=== PATIENT | male | born 1950 | race Caucasian/White ===

== ENCOUNTER 2017-12-28 00:39 | Observation (INO) | payer MEDICARE, OTHER ==
[2017-12-28] MEDS ORDERED: SODIUM CHLORIDE 0.9% 1,000 ML IV STA ×2 (01:19)
[2017-12-28] MEDS ORDERED: cefTRIAXone IN SWFI 1,000 MG/10 ML SYRINGE IVP STA (01:19)
[2017-12-28] MEDS ORDERED: SODIUM CHLORIDE 0.9% 500 ML IV STA (01:19)
[2017-12-28] MEDS ORDERED: IPRATROPIUM-ALBUTEROL 3 ML NEB INHALATION STA (01:19)
--- NOTE | 2017-12-28 01:24 | ED ---
General Adult HPI - General Chief complaint: Upper Respiratory Infection Stated complaint: foot pain Time Seen by Provider: 12/28/17 00:45 Source: patient, RN notes reviewed, old records reviewed Mode of arrival: ambulatory Limitations: no limitations - History of Present Illness Initial comments: This is a 67-year-old male the ER for evaluation of multiple complaints. Patient complaining of occasional chest pain with cough and congestion significant shortness of breath. Bilateral lower Shorty pains and diffuse body rash that is severely pruritic. Patient admits to occasional fevers. Patient recently traveled here from [facility]. No takes no medications. Patient states he does not feel well, his breathing is worsening over the past week - Related Data Home Medications Medication Instructions Recorded Confirmed No Known Home Medications [No 12/28/17 12/28/17 Known Home Medications] Allergies Allergy/AdvReac Type Severity Reaction Status Date / Time amoxicillin [From Augmentin] Allergy Rash/Hives Verified 12/28/17 00:43 clavulanic acid Allergy Rash/Hives Verified 12/28/17 00:43 [From Augmentin] Review of Systems ROS Statement: Those systems with pertinent positive or pertinent negative responses have been documented in the HPI. ROS Other: All systems not noted in ROS Statement are negative. Past Medical History Past Medical History: No Reported History History of Any Multi-Drug Resistant Organisms: None Reported Past Surgical History: Hernia Repair Past Psychological History: No Psychological Hx Reported Smoking Status: Current every day smoker Past Alcohol Use History: Occasional Past Drug Use History: None Reported General Exam - General Exam Comments Initial Comments: excoriations, Limitations: no limitations General appearance: alert, in no apparent distress Head exam: Present: atraumatic, normocephalic, normal inspection Eye exam: Present: normal appearance, PERRL, EOMI. Absent: scleral icterus, conjunctival injection, periorbital swelling ENT exam: Present: normal exam, mucous membranes moist Neck exam: Present: normal inspection. Absent: tenderness, meningismus, lymphadenopathy Respiratory exam: Present: normal lung sounds bilaterally, wheezes, decreased breath sounds, prolonged expiratory. Absent: respiratory distress, rales, rhonchi, stridor Cardiovascular Exam: Present: normal rhythm, tachycardia, normal heart sounds. Absent: systolic murmur, diastolic murmur, rubs, gallop, clicks GI/Abdominal exam: Present: soft, normal bowel sounds. Absent: distended, tenderness, guarding, rebound, rigid Extremities exam: Present: normal inspection, full ROM, normal capillary refill. Absent: tenderness, pedal edema, joint swelling, calf tenderness Back exam: Present: normal inspection Neurological exam: Present: alert, oriented X3, CN II-XII intact Psychiatric exam: Present: normal affect, normal mood Skin exam: Present: warm, dry, intact, normal color, other (Scabies like infestation throughout skin, multiple areas of secondary infection). Absent: rash Course Vital Signs 12/28/17 12/28/17 12/28/17 00:40 02:14 02:24 Temperature 97 F L Pulse Rate 120 H 108 H 69 Respiratory 20 18 18 Rate Blood Pressure 165/84 146/66 O2 Sat by Pulse 97 97 Oximetry 12/28/17 02:25 Temperature Pulse Rate 103 H Respiratory 18 Rate Blood Pressure O2 Sat by Pulse Oximetry - Reevaluation(s) Reevaluation #1: 12/28/17 02:40 Patient has no significant clinical improvement breathing Reevaluation #2: 12/28/17 02:41 Pain in bilateral feet is improved EKG Findings - EKG Comments: EKG Findings:: EKG shows sinus tachycardia rate 107, VA 146, QRS 100, QTc 464 Medical Decision Making - Medical Decision Making 67 male for ER for evaluation of COPD cough congestion, no improvement. Bilateral lower extremity cellulitis and erythema, pain. Occasional fevers. Patient also has diffuse rash over body that is severely pruritic secondary infection. - Lab Data Result diagrams: 12/28/17 01:35 12/28/17 01:35 Lab Results 12/28/17 12/28/17 12/28/17 Range/Units 01:35 01:35 01:35 WBC 12.2 H (3.8-10.6) k/uL RBC 4.60 (4.30-5.90) m/uL Hgb 12.2 L (13.0-17.5) gm/dL Hct 37.9 L (39.0-53.0) % MCV 82.5 (80.0-100.0) fL MCH 26.4 (25.0-35.0) pg MCHC 32.0 (31.0-37.0) g/dL RDW 14.5 (11.5-15.5) % Plt Count 400 (150-450) k/uL Neutrophils % 79 % Lymphocytes % 10 % Monocytes % 5 % Eosinophils % 5 % Basophils % 0 % Neutrophils # 9.6 H (1.3-7.7) k/uL Lymphocytes # 1.2 (1.0-4.8) k/uL Monocytes # 0.6 (0-1.0) k/uL Eosinophils # 0.6 (0-0.7) k/uL Basophils # 0.1 (0-0.2) k/uL PT 9.8 (9.0-12.0) sec INR 1.0 (<1.2) APTT 24.5 (22.0-30.0) sec D-Dimer 1.25 H (<0.60) mg/L FEU Sodium 148 H (137-145) mmol/L Potassium 4.0 (3.5-5.1) mmol/L Chloride 110 H (98-107) mmol/L Carbon Dioxide 24 (22-30) mmol/L Anion Gap 14 mmol/L BUN 29 H (9-20) mg/dL Creatinine 0.90 (0.66-1.25) mg/dL Est GFR (CKD-EPI)AfAm >90 (>60 ml/min/1.73 sqM) Est GFR (CKD-EPI)NonAf 88 (>60 ml/min/1.73 sqM) Glucose 143 H (74-99) mg/dL Calcium 10.1 (8.4-10.2) mg/dL Magnesium 1.8 (1.6-2.3) mg/dL Total Bilirubin 0.3 (0.2-1.3) mg/dL AST 43 (17-59) U/L ALT 39 (21-72) U/L Alkaline Phosphatase 92 (38-126) U/L Total Protein 7.5 (6.3-8.2) g/dL Albumin 4.1 (3.5-5.0) g/dL Serum Alcohol <10 mg/dL Disposition Clinical Impression: Asthmatic bronchitis, Scabies, Cellulitis of both feet, Pernio, COPD (chronic obstructive pulmonary disease) Disposition: ADMITTED IP TO THIS [facility] Condition: Good Referrals: Nonstaff,Physician [Primary Care Provider] - 1-2 days
--- NOTE | 2017-12-28 02:05 | XR ---
EXAMINATION TYPE: XR chest 2V DATE OF EXAM: 12/28/2017 COMPARISON: NONE HISTORY: Short of breath TECHNIQUE: Frontal and lateral views of the chest are obtained. FINDINGS: There is no heart failure nor confluent pneumonic infiltrate. Costophrenic angles are quinn r. Bony thorax is intact. IMPRESSION: No active cardiopulmonary disease. Normal heart.
[2017-12-28 02:13] LABS: Basophils # (A) 0.1 k/uL (0-0.2); Basophils % (A) 0 %; Eosinophils # (A) 0.6 k/uL (0-0.7); Eosinophils % (A) 5 %; HCT 37.9 % (39.0-53.0); HGB 12.2 gm/dL (13.0-17.5); Lymphocytes # (A) 1.2 k/uL (1.0-4.8); Lymphocytes % (A) 10 %; MCH 26.4 pg (25.0-35.0); MCV 82.5 fL (80.0-100.0); Mean Platelet Volume 7.2; Monocytes # (A) 0.6 k/uL (0-1.0); Monocytes % (A) 5 %; Neutrophils # (A) 9.6 k/uL (1.3-7.7); Neutrophils % (A) 79 %; Platelet Count 400 k/uL (150-450); RDW 14.5 % (11.5-15.5); WBC 12.2 k/uL (3.8-10.6)
[2017-12-28 02:15] LABS: ALT 39 U/L (21-72); AST 43 U/L (17-59); Albumin 4.1 g/dL (3.5-5.0); Alcohol <10 mg/dL; Alkaline Phosphatase 92 U/L (38-126); Anion Gap 14 mmol/L; Blood Urea Nitrogen 29 mg/dL (9-20); Calcium 10.1 mg/dL (8.4-10.2); Carbon Dioxide 24 mmol/L (22-30); Chloride 110 mmol/L (98-107); Glucose 143 mg/dL (74-99); Magnesium 1.8 mg/dL (1.6-2.3); Sodium 148 mmol/L (137-145); Total Bilirubin 0.3 mg/dL (0.2-1.3); Total Protein 7.5 g/dL (6.3-8.2)
[2017-12-28 02:22] LABS: D-Dimer 1.25 mg/L FEU (<0.60); Partial Thromboplastin Time 24.5 sec (22.0-30.0); Prothrombin Time 9.8 sec (9.0-12.0)
[2017-12-28] MEDS ORDERED: diphenhydrAMINE 50 MG/ML 1 ML VIAL IVP PRN (02:37)
[2017-12-28] MEDS ORDERED: THIAMINE 100 MG/ML 2 ML VIAL IVPB STA (02:37)
[2017-12-28] MEDS ORDERED: PERMETHRIN 5% CREAM 60 GM TUBE TOPICAL ONE (02:37)
[2017-12-28] MEDS ORDERED: VANCOMYCIN IV PER PHARMACY 1 EACH MISC MISCELLANE PRN (02:37)
[2017-12-28] MEDS ORDERED: LORazepam 2 MG/ML INJ IV PRN ×3 (02:37)
[2017-12-28] MEDS ORDERED: methylPREDNISolone SOD SUCCI 125 MG/2 ML VIAL IV STA (02:38)
[2017-12-28] MEDS ORDERED: IPRATROPIUM-ALBUTEROL 3 ML NEB INHALATION PRN (02:38)
[2017-12-28] MEDS ORDERED: VANCOMYCIN 1,500 MG in SODIUM CHLORIDE 0.9% 250 ML IVPB STA (02:44)
[2017-12-28 02:51] LABS: Creatine Kinase 261 U/L (55-170)
[2017-12-28] MEDS ORDERED: RX INFO: IV CONTRAST WAS GIVEN 1 EACH MISC MISCELLANE PRN (02:55)
[2017-12-28 03:04] LABS: Troponin I <0.012 ng/mL (0.000-0.034)
[2017-12-28 03:05] LABS: Creatine Kinase MB 7.5 ng/mL (0.0-2.4)
--- NOTE | 2017-12-28 05:00 | CT ---
EXAM: CT Angiography Chest With Intravenous Contrast CLINICAL HISTORY: ITS.REASON CT Reason: Pain TECHNIQUE: Axial computed tomographic angiography images of the chest with intravenous contrast using pulmonary embolism protocol. CTDI is 6.10 mGy and DLP is 272.60 mGy-cm. This CT exam was performed using one or more of the following dose reduction techniques: automated exposure control, adjustment of the mA and/or kV according to patient size, and/or use of iterative reconstruction technique. MIP reconstructed images were created and reviewed. COMPARISON: No relevant prior studies available. FINDINGS: Pulmonary arteries: Unremarkable. No pulmonary embolism. Aorta: No acute findings. No thoracic aortic aneurysm. Lungs: No consolidation. No airway abnormalities. Pleural space: No perfusion and no pneumothorax. No significant effusion. Heart: Multivessel coronary calcifications. No cardiomegaly or pericardial effusion. No evidence of RV dysfunction. Bones/joints: No suspicious lytic or sclerotic lesions of bone. No acute fracture. No dislocation. Soft tissues: Unremarkable. Lymph nodes: Calcified left hilar and subcarinal lymph nodes are compatible with old granulomatous disease. Spleen: Calcified granulomas of the spleen. Other findings: Upper abdomen is unremarkable. IMPRESSION: No acute cardiopulmonary disease.
[2017-12-28 06:46] VITALS: BMI 23.1
--- NOTE | 2017-12-28 08:16 | US ---
EXAMINATION TYPE: US venous doppler duplex LE DATE OF EXAM: 12/28/2017 7:50 AM COMPARISON: NONE CLINICAL HISTORY: Pain. ANN MARIE, bilat leg swelling and redness, h/o scabies and bed bugs SIDE PERFORMED: Bilateral TECHNIQUE: The lower extremity deep venous system is examined utilizing real time linear array sonog eduardo with graded compression, doppler sonography and color-flow sonography. VESSELS IMAGED: External Iliac Vein (EIV) Common Femoral Vein Deep Femoral Vein Greater Saphenous Vein * Femoral Vein Popliteal Vein Small Saphenous Vein * Proximal Calf Veins (* superficial vessels) Right Leg: Appears negative for DVT Left Leg: Appears negative for DVT IMPRESSION: 1. Bilateral lower extremity negative for deep venous thrombosis.
[2017-12-28 08:20] VITALS: BP 158/92; PULSE 96; RESP 16; TEMP 97.8
--- NOTE | 2017-12-28 11:49 | P.HPIM ---
History of Present Illness 70-year-old gentleman came in to ER, apparently homeless and the came in with pruritic rash which is believe is secondary to dry skin Herndon lotion for that but patient was diagnosed with scabies my suspicion is extremely low for scabies patient was treated with permethrin for scabies and was admitted to the hospital because of the left lower limb cellulitis Doppler of the left lower expertise negative patient has mild does have cellulitis with local is of temperature edema and some tenderness. Patient will be discharged on Keflex for that patient was comparing of passive congestion. Patient will be evaluated by social work if we're able to figure out his disposition patient will be discharged today on antibiotics for his cellulitis and Flonase nasal spray for his ALLERGIC rhinitis. We'll set up a follow with Dr.Mini Kang as an outpatient. Patient denied any fever chills patient and nausea vomiting abdominal pain dysuria. Chest x-ray CT angios the chest are negative Review of Systems REVIEW OF SYSTEMS: CONSTITUTIONAL: No fever, no malaise, no fatigue. HEENT: No recent visual problems or hearing problems. Denied any sore throat. CARDIOVASCULAR: No chest pain, orthopnea, PND, no palpitations, no syncope. PULMONARY: No shortness of breath, no cough, no hemoptysis. GASTROINTESTINAL: No diarrhea, no nausea, no vomiting, no abdominal pain. Normoactive bowel sounds. NEUROLOGICAL: No headaches, no weakness, no numbness. HEMATOLOGICAL: Denies any bleeding or petechiae. GENITOURINARY: Denies any burning micturition, frequency, or urgency. MUSCULOSKELETAL/RHEUMATOLOGICAL: Denies any joint pain, swelling, or any muscle pain. ENDOCRINE: Denies any polyuria or polydipsia. The rest of the 14-point review of systems is negative. Past Medical History Past Medical History: No Reported History History of Any Multi-Drug Resistant Organisms: None Reported Past Surgical History: Hernia Repair Past Anesthesia/Blood Transfusion Reactions: No Reported Reaction Past Psychological History: No Psychological Hx Reported Smoking Status: Current every day smoker Past Alcohol Use History: Occasional Past Drug Use History: None Reported - Past Family History Father Family Medical History: No Reported History Medications and Allergies Home Medications Medication Instructions Recorded Confirmed Type Cephalexin [Keflex] 500 mg PO Q12HR #14 cap 12/28/17 Rx Colloidal Oatmeal [Eucerin Eczema 1 applic TOPICAL BID #250 gm 12/28/17 Rx Relief] Fluticasone Nasal [place] [Flonase 2 spr EA NOSTRIL DAILY #1 bottle 12/28/17 Rx Nasal [place]] Sulfamethox-Tmp 800-160Mg [Bactrim 1 tab PO Q12HR #14 tab 12/28/17 Rx DS 800-160 mg] Allergies Allergy/AdvReac Type Severity Reaction Status Date / Time amoxicillin [From Augmentin] Allergy Rash/Hives Verified 12/28/17 00:43 clavulanic acid Allergy Rash/Hives Verified 12/28/17 00:43 [From Augmentin] BERRIES Allergy Rash/Hives Uncoded 12/28/17 08:26 Physical Exam Vitals: Vital Signs Temp Pulse Pulse Resp BP BP Pulse Ox 12/28/17 08:00 96 16 12/28/17 07:00 97.8 F 96 16 158/92 92 L 12/28/17 05:36 97.6 F 86 18 156/76 94 L 12/28/17 03:30 104 H 162/67 98 12/28/17 02:25 103 H 18 12/28/17 02:24 69 18 146/66 97 12/28/17 02:14 108 H 18 12/28/17 00:40 97 F L 120 H 20 165/84 97 Intake and Output 12/27/17 12/28/17 12/28/17 22:59 06:59 14:59 Intake Total 250 480 Balance 250 480 Intake: Intake, IV Titration 250 Amount Vancomycin 1,500 mg In 250 Sodium Chloride 0.9% 250 ml @ 125 mls/hr IVPB Q12H [facility] Rx#:[id number] Oral 480 Other: Voiding Method Toilet Weight 81.647 kg PHYSICAL EXAMINATION: GENERAL: The patient is alert and oriented x3, not in any acute distress. Well developed, well nourished. HEENT: Pupils are round and equally reacting to light. EOMI. No scleral icterus. No conjunctival pallor. Normocephalic, atraumatic. No pharyngeal erythema. No thyromegaly. CARDIOVASCULAR: S1 and S2 present. No murmurs, rubs, or gallops. PULMONARY: Chest is clear to auscultation, no wheezing or crackles. ABDOMEN: Soft, nontender, nondistended, normoactive bowel sounds. No palpable organomegaly. MUSCULOSKELETAL: No joint swelling or deformity. EXTREMITIES: No cyanosis, clubbing, or pedal edema. NEUROLOGICAL: Gross neurological examination did not reveal any focal deficits. SKIN: Dry skin rash consistent with scratching there are no Web space related infection or scabies patient does have cellulitis of the left leg extending up to the mid leg area circumferential with local is of temperature and redness Results CBC & Chem 7: 12/28/17 01:35 12/28/17 01:35 Labs: Abnormal Lab Results - Last 24 Hours (Table) 12/28/17 12/28/17 12/28/17 Range/Units 01:35 01:35 01:35 WBC 12.2 H (3.8-10.6) k/uL Hgb 12.2 L (13.0-17.5) gm/dL Hct 37.9 L (39.0-53.0) % Neutrophils # 9.6 H (1.3-7.7) k/uL D-Dimer 1.25 H (<0.60) mg/L FEU Sodium 148 H (137-145) mmol/L Chloride 110 H (98-107) mmol/L BUN 29 H (9-20) mg/dL Glucose 143 H (74-99) mg/dL Total Creatine Kinase (55-170) U/L CK-MB (CK-2) (0.0-2.4) ng/mL 12/28/17 Range/Units 01:35 WBC (3.8-10.6) k/uL Hgb (13.0-17.5) gm/dL Hct (39.0-53.0) % Neutrophils # (1.3-7.7) k/uL D-Dimer (<0.60) mg/L FEU Sodium (137-145) mmol/L Chloride (98-107) mmol/L BUN (9-20) mg/dL Glucose (74-99) mg/dL Total Creatine Kinase 261 H (55-170) U/L CK-MB (CK-2) 7.5 H* (0.0-2.4) ng/mL Thrombosis Risk Factor Assmnt - Choose All That Apply Any of the Below Risk Factors Present?: Yes Each Factor Represents 1 point: Swollen legs (current) Each Risk Factor Represents 2 Points: Age 61-74 years Thrombosis Risk Factor Assessment Total Risk Factor Score: 3 Thrombosis Risk Factor Assessment Level: Moderate Risk Assessment and Plan Plan: -Left leg cellulitis: Patient will be discharged on Bactrim to cover both the strip and staphylococci. Patient is ALLERGIC to amoxicillin because of which will give a dose of ceftezole in IV to make sure patient doesn't have any ALLERGIC reaction to this. -ALLERGIC rhinitis Flonase -Pruritic rash secondary to dry skin, low suspicion for scabies, although patient apparently had bed bug infestation
--- NOTE | 2017-12-28 11:49 | P.DS ---
Providers Date of admission: 12/28/17 02:37 Attending physician: Tk Smith Primary care physician: Physician Nonstaff Hospital Course: Please refer to my HPI Patient Condition at Discharge: Good Plan - Discharge Summary New Discharge Prescriptions: New Cephalexin [Keflex] 500 mg PO Q12HR #14 cap Fluticasone Nasal [place] [Flonase Nasal [place]] 2 spr EA NOSTRIL DAILY #1 bottle Sulfamethox-Tmp 800-160Mg [Bactrim DS 800-160 mg] 1 tab PO Q12HR #14 tab Colloidal Oatmeal [Eucerin Eczema Relief] 1 applic TOPICAL BID #250 gm Discharge Medication List Cephalexin [Keflex] 500 mg PO Q12HR #14 cap 12/28/17 [Rx] Colloidal Oatmeal [Eucerin Eczema Relief] 1 applic TOPICAL BID #250 gm 12/28/17 [Rx] Fluticasone Nasal [place] [Flonase Nasal [place]] 2 spr EA NOSTRIL DAILY #1 bottle 12/28/17 [Rx] Sulfamethox-Tmp 800-160Mg [Bactrim DS 800-160 mg] 1 tab PO Q12HR #14 tab [Rx] Follow up Appointment(s)/Referral(s): Siri Kang MD [STAFF PHYSICIAN] - 1 Week (Patient to call Dr. Garcia' s office to schedule follow up appointment. The office has questions for patient. ) Patient Instructions/Handouts: Cephalexin (By mouth), Sulfamethoxazole/ Trimethoprim (By mouth), Fluticasone (Into the nose), Cellulitis (DC), Scabies ( DC), COPD (Chronic Obstructive Pulmonary Disease) (DC)
[2017-12-28] MEDS ORDERED: MULTIVITAMINS, THERA 1 EACH TAB PO SCH (12:00)
[2017-12-28] MEDS ORDERED: VANCOMYCIN 1,500 MG in SODIUM CHLORIDE 0.9% 250 ML IVPB SCH (12:00)
[2017-12-28] MEDS: ceFAZolin 1,000 MG in DEXTROSE/WATER 1 50ML.BAG IVPB SCH ×2 (12:32→17:58)
[2017-12-28] MEDS: methylPREDNISolone SOD SUCCI 125 MG/2 ML VIAL IV SCH ×2 (12:33→17:58)
[2017-12-28] MEDS ORDERED: THIAMINE 100 MG TAB PO SCH (17:00)
--- NOTE | 2017-12-29 09:27 | P.PN ---
Progress Note - Text Patient's blood cultures are positive hydrated the call the lab in [facility], patient appears to have staph aureus. Trying to reach the patient the we 're unable to reach the patient at this point of time employment case manager will try to attempt reason patient to call the patient back for readmission and repeat blood cultures. Fortunately patient was discharged on Bactrim and Keflex.
[2017-12-30] MEDS ORDERED: VANCOMYCIN TROUGH DUE 1 EACH MISC MISCELLANE ONE (11:00)
== END 2017-12-28 18:50 | disposition home or self-care (01) ==
LOC: EC 00:39 → 5MS5E 02:37
PROVIDERS: ADMIT Hospitalist; ATTEND Hospitalist
DX: L03.116 Cellulitis of left lower limb (principal); J30.9 Allergic rhinitis, unspecified; R06.02 Shortness of breath; L85.3 Xerosis cutis; Z59.0 Homelessness; B86 Scabies; B88.8 Other specified infestations; J44.9 Chronic obstructive pulmonary disease, unspecified; F17.200 Nicotine dependence, unspecified, uncomplicated; Z88.0 Allergy status to penicillin; Z88.8 Allergy status to other drugs, medicaments and biological substances; Z91.018 Allergy to other foods
CPT/HCPCS: 96375 ×3; 96361 ×3; 96365 ×2; 96366 ×3; 99285 ×2; 96376; 96367; 36415; 94640; 93005; 85379; 83880; 80053; 82550; 82553; 83735; 84484; 85025; 85610; 85730; 87040; 80320; 87077; 87186; 71046; 93970; 71275; G0378; J3370; J2930; J0696; J0690; Q9967